=== PATIENT | male | born 1995 | race Two or more races ===

== ENCOUNTER 2024-11-24 18:39 | Emergency (ER) | payer SELFPAY ==
--- NOTE | 2024-11-24 18:45 | EKG_ITS ---
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
--- NOTE | 2024-11-24 18:50 | XR_ITS ---
Examination: PA chest single view Technique: Upright PA chest single view Date and time: November 24, 2024 1942 hrs. Indications: Chest pain coughing today. Findings: No significant cardiac enlargement Minor prominence pulmonary vasculature. No lobar pneumonia or pulmonary edema. Impression: Minor prominence pulmonary vasculature
[2024-11-24 18:56] VITALS: BP 132/74; PULSE 132; RESP 24; TEMP 36.6; O2SAT 99
[2024-11-24 19:15] LABS: Basophils # (Auto) 0.1 Thou/mm3 (0.0-0.2); Basophils % (Auto) 1 % (0-2.5); Eosinophils # (Auto) 0.1 Thou/mm3 (0.0-0.5); Eosinophils % (Auto) 1 % (0-10); Hematocrit 43.4 % (41.0-53.0); Hemoglobin 15.9 g/dL (13.5-16.0); Immature Granulocytes Auto 0.03 Thou/mm3 (0.00-0.00); Lymphocytes # (Auto) 3.1 Thou/mm3 (1.0-4.8); Lymphocytes % (Auto) 34 % (10-50); Mean Corpuscular HGB Conc 36.6 g/dl (31.0-37.0); Mean Corpuscular Hemoglobin 32.6 pg (25.0-35.0); Mean Corpuscular Volume 89 fL (80-100); Monocytes # (Auto) 0.9 Thou/mm3 (0.0-0.8); Monocytes % (Auto) 10 % (0-12); Neutrophils # (Auto) 4.9 Thou/mm3 (1.8-7.7); Neutrophils % (Auto) 55 % (37-80); Nucleated Red Blood Cell # 0.00 Thou/mm3 (0.00-0.00); Nucleated Red Blood Cell % 0 /100 WBC (0); Platelet Count 262 Thou/mm3 (140-440); RDW Standard Deviation 37.2 fL (35.1-43.9); Red Blood Count 4.88 Miln/mm3 (4.50-5.90); White Blood Count 9.0 Thou/mm3 (3.8-10.6)
[2024-11-24 19:35] LABS: Alanine Aminotransferase 91 U/L (10-49); Albumin, Serum 5.0 gm/dL (3.5-5.0); Albumin/Globulin Ratio 1.9 (1.2-2.2); Alkaline Phosphatase 84 U/L (46-116); Anion Gap 17 (7-16); Aspartate Amino Transferase 60 U/L (0-34); BUN/Creatinine Ratio 6 Ratio (12-20); Bilirubin,Total 0.6 mg/dL (0.3-1.2); Blood Urea Nitrogen < 5 mg/dL (9-23); Calcium 9.6 mg/dL (8.3-10.6); Calcium (Corrected) 9.6 mg/dL (8.5-10.1); Carbon Dioxide 22.3 mMol/L (20.0-31.0); Chloride 103 mMol/L (98-107); Creatinine (Component) 0.9 mg/dL (0.6-1.3); Globulin 2.7 gm/dL (2.3-3.5); Glucose 116 mg/dL (74-106); Magnesium 2.2 mg/dL (1.6-2.6); Osmolality,Calculated 281 (275-295); Potassium 3.7 mMol/L (3.4-5.1); Sodium 142 mMol/L (136-145); Total Protein 7.7 gm/dL (5.7-8.2); Troponin I < 0.002 ng/mL (0.0-0.045); eGFR > 60 See Note
[2024-11-24 19:54] LABS: INR 1.0 (0.9-1.3); Partial Thromboplastin Time 25.6 Seconds (22.0-36.0); Prothrombin Time 11.0 Seconds (9.0-12.2)
[2024-11-24 20:01] VITALS: BP 147/89; PULSE 110; PULSE 112; RESP 18; TEMP 37; O2SAT 98
--- NOTE | 2024-11-24 20:06 | PD.EDCHEST ---
ED Chest Pain RME/HPI General Chief Complaint: Chest Pain Stated Complaint: HEART RACING FEELS LIKE HE IS GOING TO PASS OUT Time Seen by Provider: 11/24/24 18:42 Source: patient Arrival date/time: 11/24/24 18:39 Mode of arrival: ambulatory Limitations: no limitations RME / HPI RME / HPI narrative: Patient is a 29-year-old male with onset of chest pain today after drinking a 18 pack of beer and using cocaine. Patient states his chest pain is midsternal. He states his arm on the left side feels numb. He has no jaw pain. He has no prior history of coronary disease or heart attack. No history of stroke. Denies fever, chills, nausea or vomiting. No diarrhea or constipation. No focal weakness or change in his speech. No headache. MD complaint: chest pain Onset (ago): hour(s) Duration: constant Onset: during rest Pain location: substernal Severity: severe Severity scale (1-10): 10 Quality: sharp Pain radiation: LUE Relieving factors: nothing Exacerbating factors: nothing Context: other (Drank beer and took cocaine) Associated symptoms: palpitations Treatments prior to arrival chest pain: none Related Data Allergies Allergy/AdvReac Type Severity Reaction Status Date / Time No Known Allergies Allergy Unverified 11/24/24 18:52 Review of Systems Review of Systems Systems Reviewed: All systems reviewed, normal except as documented Past Medical History Past Medical History CARDIAC: Positive Hypertension; Negative Congestive Heart Failure RESPIRATORY: Negative Chronic Obstructive Pulmonary Disease (COPD) GENITOURINARY: Negative Renal Disease ENDOCRINE: Negative Diabetes Mellitus Type 1 or Diabetes Mellitus Type 2 Social History SMOKING STATUS: Current every day smoker ED Exam General Limitations: Present no limitations General appearance: Present alert and in no apparent distress Head Head exam: Present atraumatic Eye Eye exam: Present normal appearance, PERRL and EOMI ENT ENT exam: Present normal exam, normal oropharynx and mucous membranes moist Neck Neck exam: Present normal inspection, full ROM and trachea midline Chest Chest inspection: Present normal inspection and symmetric chest wall rise Respiratory Respiratory exam: Present normal lung sounds bilaterally Cardiovascular Cardiovascular exam: Present normal rhythm, tachycardia and normal heart sounds Abdominal Exam Abdominal exam: Present soft and normal bowel sounds Extremities Exam Extremities exam: Present normal inspection and full ROM Back Exam Back exam: Present normal inspection and full ROM Neurological Exam Neurological exam: Present alert, oriented X3, CN II-XII intact and normal gait Psychiatric Psychiatric exam: Present agitated and anxious Skin Skin exam: Present warm, intact and diaphoresis Course Course Course Narrative: Patient presented with chest pain after heavy cocaine use. 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 11/24/24 18:50 Active Continuous Pulse Oximetry NOW Care 11/24/24 18:50 Completed EKG (ED ONLY) *Do not use* NOW Care 11/24/24 18:45 Completed Insert IV NOW Care 11/24/24 18:50 Active EKG (ED Only) Stat Exams 11/24/24 18:45 Draft XR chest 1V portable Stat Exams 11/24/24 18:50 Completed CBC Stat Lab 11/24/24 19:00 Completed Comprehensive Metabolic Panel Stat Lab 11/24/24 19:00 Completed Drug Screen,Urine Stat Lab 11/24/24 18:50 Ordered Magnesium Stat Lab 11/24/24 19:00 Completed Partial Thromboplastin Time Stat Lab 11/24/24 19:00 Completed Prothrombin Time with INR Stat Lab 11/24/24 19:00 Completed Troponin I Stat Lab 11/24/24 19:00 Completed Troponin I Stat Lab 11/24/24 21:47 Completed Urinalysis Stat Lab 11/24/24 18:50 Ordered Urinalysis, C/S if Indicated Stat Lab 11/24/24 18:50 Ordered Aspirin Med 11/24/24 18:51 Discontinued 325 mg PO X1 ONE Morphine* Inj Med 11/24/24 18:51 Discontinued 4 mg IVP X1 ONE Nitroglycerin Oint 2% [Nitro-paste Oint 2%] Med 11/24/24 18:51 Discontinued 1 inch TOP X1 ONE Ondansetron Inj [Zofran Inj] Med 11/24/24 18:51 Discontinued 4 mg IVP X1 ONE Sodium Chloride 0.9% 1000 ml [Ns] 1,000 ml Med 11/24/24 18:50 Active IV 100 mls/hr Vital Signs Vital signs: Vital Signs Temperature 97.8 F 11/24/24 18:56 Pulse Rate 132 H 11/24/24 18:56 Respiratory Rate 24 H 11/24/24 18:56 Blood Pressure 132/74 H 11/24/24 18:56 Pulse Oximetry (%) 99 11/24/24 18:56 Oxygen Delivery Method Room Air 11/24/24 18:56 Chest Pain MDM Narrative MDM Narrative:: Patient is a 28-year-old 29-year-old male who drank 18 beers today and also used cocaine which she does routinely. He had onset of midsternal chest pain with slight sensation of numbness in his left arm. He is anxious and agitated. Patient data External records reviewed:: None Clinical information provided by:: patient Social determinants that could affect healthcare access:: substance use Patient has the following chronic illnesses:: Alcohol abuse, drug abuse How is presenting disease/condition affected by chronic disease/condition?: exacerbated by Evaluation data The following diagnostics were reviewed and interpreted by me:: lab results, radiology exam(s) and EKG tracing(s) Lab and/or radiology exams considered but not ordered:: Troponin x 2 were negative. EKG was sinus tach. There were no ST-T wave changes. Chest x-ray was negative Interpretation Summary: As above Medications / Prescriptions Medications or Prescriptions considered but not ordered:: Metoprolol Medication administrations:: Medication Administration History Sodium Chloride (Ns) 1,000 mls @ 100 mls/hr IV .Q10H ONE Stop: 11/25/24 04:49 Last Infusion: 11/24/24 22:06 Dose: 250 mls/hr Documented By: Admin: 11/24/24 20:32 Dose: 100 mls/hr Documented By: MIREILLE Discontinued Medications Aspirin (Aspirin 325 Mg Tablet) 325 mg PO X1 ONE Stop: 11/24/24 18:52 Last Admin: 11/24/24 20:34 Dose: 325 mg Documented By: MIREILLE Morphine Sulfate (Morphine Sulf Inj 4 Mg/Ml Vial) 4 mg IVP X1 ONE Stop: 11/24/24 18:52 Last Admin: 11/24/24 20:34 Dose: 4 mg Documented By: MIREILLE Nitroglycerin (Nitroglycerin Oint 2% 1 Inch Packet) 1 inch TOP X1 ONE Stop: 11/24/24 18:52 Last Admin: 11/24/24 20:35 Dose: 1 inch Documented By: MIREILLE Ondansetron HCl (Ondansetron Inj 2 Mg/Ml Inj 2 Ml) 4 mg IVP X1 ONE; Protocol Stop: 11/24/24 18:52 Last Admin: 11/24/24 20:34 Dose: 4 mg Documented By: MIREILLE Medications as above Consultations Consultation(s) initiated? (list below): No Diagnosis Chest Pain Differential Diagnosis: chest pain Most likely diagnosis given after review of the tests above:: Chest pain, substance abuse, alcohol abuse Admission Indicated Admission indicated?: not indicated Admission Request Was there a request for admission?: No Disposition Plan Disposition Plan: Discharge Discharge Attestation Discharge Attestation: The patient and all family members were given an opportunity to ask questions and understood the discharge instructions. Discharge instructions specifically effects, indications for sooner follow up or return to the emergency department, and the expected course of current diagnosis. Patient condition: Stable Discharge Plan Plan Patient Disposition: HOME (Self Care) Prescriptions/Referrals Referrals: No Primary/Family,Physician [Primary Care Provider] - In 1 week Problem List Clinical Impression: Chest pain, Cocaine use Patient/Caregiver Discharge Instructions Discharge Activity: activity as tolerated Education Materials: ED Chest Pain, Uncertain Cause Additional Instructions: Follow-up with your doctor in 2 to 3 days. Please avoid using any further cocaine or other drugs. Also please consider seeking help for alcohol use. Print Language: Singaporean Stand Alone Forms: Breanna Award Info., Patient Portal Info Letter
[2024-11-24] MEDS: SODIUM CHLORIDE 0.9% 1000 ML 1,000 ML 100 ML IV (20:32)
[2024-11-24] MEDS: MORPHINE SULF INJ 4 MG/ML VIAL IVP (20:34)
[2024-11-24] MEDS: ONDANSETRON INJ 2 MG/ML INJ 2 ML 4 MG IVP (20:34)
[2024-11-24 20:35] VITALS: BP 142/82; PULSE 115
[2024-11-24] MEDS: NITROGLYCERIN OINT 2% 1 INCH PACKET TOP (20:35)
[2024-11-24 22:07] VITALS: BP 134/74; PULSE 96; RESP 18; TEMP 36.8; O2SAT 96
[2024-11-24 22:16] LABS: Troponin I < 0.002 ng/mL (0.0-0.045)
[2024-11-24 23:21] VITALS: BP 138/76; PULSE 84; RESP 16; TEMP 36.8; O2SAT 97
== END 2024-11-24 23:23 | disposition home or self-care (01) ==
PROVIDERS: Emergency Provider Family Medicine
DX: R07.9 Chest pain, unspecified (principal); F14.90 Cocaine use, unspecified, uncomplicated
CPT/HCPCS: 36415; 71045; 80053; 80307; 81001; 83735; 84484; 85025; 85610; 85730; 93005; 96361; 96374; 96375; 99284; J2270; J2405; J7030; A9270